=== PATIENT | male | born 1980 | race Hispanic/Latino ===

== ENCOUNTER 2017-06-08 06:31 | Day surgery (SDC) | payer MEDICAID ==
[2017-05-28 12:16] VITALS: BMI 25.1
[2017-06-08] MEDS ORDERED: Lactated Ringer's 1,000 ML IV ONE (07:15)
[2017-06-08] MEDS ORDERED: Propofol 10 mg/ml Inj (20 ML) ONE (07:23)
[2017-06-08] MEDS ORDERED: Succinylcholine 200 mg/10 ml Inj IV ONE (07:24)
[2017-06-08] MEDS ORDERED: Phenylephrine 10 mg/ml Inj ONE (07:24)
[2017-06-08] MEDS ORDERED: Lidocaine 1% Inj (20ml) ONE (07:25)
[2017-06-08] MEDS ORDERED: Lidocaine 2% w Epi 1:100,000 Inj IJ ONE (07:26)
[2017-06-08] MEDS ORDERED: Bacitracin Ointment 30 GM TUBE ONE (07:26)
--- NOTE | 2017-06-08 07:38 | CP.SDSHP ---
Same Day Surgery H & P - History Proposed Procedure: Right knee diagnostic arthroscopy Pre-Op Diagnosis: Right knee persistent pain and swelling s/p R TKA - Previous Medical/Surgical History Misc: Other (Hemophilia A, hepatitis C) Pain: 4.Moderate Pain Previous Surgical History: Right knee open synovectomy, right knee arthroscopy, left knee arthroscopy, right TKA, left TKA - Allergies Allergies: Allergies povidone-iodine [From Betadine] Allergy (Verified 05/28/17 11:23) RASH soap [From Betadine] Allergy (Verified 05/28/17 11:23) RASH - Current Medications Current Medications: Factor 8, celebrex, folic acid - Physical Exam General Appearance: No acute distress Vital Signs: T: 97.5, p:83, rr: 18, BP: 126/81, o2 sat: 96 Mental Status: Alert & Oriented x3 Neuro: WNL Heart: WNL Lungs: WNL GI: WNL - {Optional Preform as Required} Abdomen: WNL Integument: WNL Ortho: Other (Right knee: moderate swelling, old midline, lateral and medial surgical scars well healed, mild general tenderness, ROM 0-70, sensation intact SP/DP/TN, motor intact EHL/FHL/TA/Gastroc/Q/HS, pedal pulses intact, compartments soft and NT) ENT: WNL - Impression Impression: Patient is a 36 y/o male who presents with c/o right knee pain and swelling which has affected his activities of daily living. He has failed conservative management and has opted for surgical management. After discussing the risks and benefits of the procedure with the patient, he agrees to proceed. Pt. Evaluated Today:Candidate for Anesthesia & Procedure: Yes - Date & Time Date: 06/08/17 Time: 07:30 Short Stay Discharge - Short Stay Discharge Admitting Diagnosis/Reason for Visit: M17.11,M25.561 Referrals: Petros Malcolm III, MD [Primary Care Provider] -
[2017-06-08] MEDS ORDERED: Rocuronium 10 mg/ml (5 ml) ONE (08:23)
[2017-06-08] MEDS ORDERED: methylPREDNISolone Depo 80 mg/ml Inj ONE (08:34)
[2017-06-08] MEDS ORDERED: MethylPREDNISolone Depo 40 mg/ml Inj ONE (08:34)
[2017-06-08] MEDS ORDERED: Morphine 1 mg/ml preservative-free Inj(Duramorph) ONE (08:35)
[2017-06-08] MEDS ORDERED: Bupivacaine 0.5% Inj(30mL) ONE (08:35)
[2017-06-08] MEDS: EPINEPHrine 1 mg/ml (1:1000) Inj ONE ×2 (08:45→09:38)
[2017-06-08] MEDS ORDERED: Neostigmine 1:1000 (1 mg/ml) Inj ONE (08:48)
[2017-06-08] MEDS ORDERED: Bupivacaine 0.5% 50 ML IJ ONE (09:29)
[2017-06-08] MEDS ORDERED: Naloxone 0.4 mg/ml Inj (Adult) ONE (09:30)
--- NOTE | 2017-06-08 09:43 | PCM.SURG1 ---
Surgeon's Initial Post Op Note - Surgeon's Notes Surgeon: Gold Cabinetmaker Maintenance: GAYLA Burnham/ 2nd assist Tai Ramirez PA-C Type of Anesthesia: General Endo, Block Regional Anesthesia Administered By: Dr Madeline Balbuena Pre-Operative Diagnosis: recurrent effusion R Knee (s/p TKR) /arthrofibrosis Operative Findings: as above Post-Operative Diagnosis: synovitis R Knee. arthrofibrosis. lateral patella retinacular contracture Operation Performed: surgical arthroscopy lateral patella retinacular release. surg arthroscopy partial synovectomy ( tricompartmental)'. evaluiation/ manipuilation R knee under anaesthesia. intraaticular injection Specimen/Specimens Removed: synovium/lateral retinaculum Estimated Blood Loss: EBL {In ML}: 5 Blood Products Given: N/A Drains Used: No Drains Post-Op Condition: Good Date of Surgery/Procedure: 06/08/17 Time of Surgery/Procedure: 08:45 (time in room 7:45)
[2017-06-08] MEDS ORDERED: Dexamethasone 4 mg/1 ml IVP PRN (09:48)
[2017-06-08] MEDS: HYDROmorphone 0.5 mg/0.5 ml ISec IVP PRN ×4 (10:04→11:35)
--- NOTE | 2017-06-08 11:38 | RAD ---
PROCEDURE: Intraoperative Fluoroscopy. HISTORY: RIGHT KNEE FINDINGS: Fluoroscopic assistance was provided 7.5 seconds fluoroscopy time utilized during this procedure. Radiation dose = 0.38 mGy. Please refer to the operative report from [facility].
--- NOTE | 2017-06-08 11:39 | RAD ---
PROCEDURE: Right Knee Radiographs. HISTORY: Status post right knee arthroscopic lysis of adhesions COMPARISON: Correlation made with concurrent intraoperative fluoroscopy images FINDINGS: BONES: Re- demonstrated is in situ total knee arthroplasty. Hardware appears intact. Satisfactory alignment There are bubbles of subcutaneous air with soft tissue swelling and suspected small effusion. JOINTS: As above JOINT EFFUSION: As above. OTHER FINDINGS: None. IMPRESSION: Total knee arthroplasty. Hardware appears intact with satisfactory alignment. Postoperative subcutaneous swelling and bubbles of air.
[2017-06-08 13:24] VITALS: RESP 18; O2SAT 95
[2017-06-08 16:21] VITALS: BP 148/81; PULSE 99; TEMP 97.6
--- NOTE | 2017-06-10 16:30 | OP ---
PROCEDURE DATE: 06/08/2017 PREOPERATIVE DIAGNOSIS: Arthrofibrosis of the right knee status post total knee replacement. POSTOPERATIVE DIAGNOSES: Arthrofibrosis of the right knee status post total knee replacement with lateral patellar contracture and marked synovitis. SURGEON: Petros Malcolm MD INGREDIENT SCALER HELPER: Orquidea Montoya, certified registered nursing senior administrative assistant. TYPE OF ANESTHESIA: General endotracheal anesthesia. COMPLICATIONS: None. DRAINS: None. OPERATIVE PROCEDURE 1. Surgical arthroscopy, lateral patellar retinacular release. 2. Surgical arthroscopy, right knee and tricompartmental synovectomy. 3. Manipulation of the right knee under anesthesia. 4. Intra-articular injection. OPERATIVE INDICATIONS: Bay Egan is a 36-year-old hemophiliac, who presents with persistent pain in the area of the right knee and restricted range of motion. The patient is status post successful right total knee replacement and arthroplasty, has developed a bit of arthrofibrosis and some pain. The patient has had recurrent effusions without extraordinary bleeds. Pros, cons, risks and benefits of surgical arthroscopy discussed, the possibility of mechanical failure, infection, recurrent bleeds, infection, thromboembolic disease, nerve injury, secondary or tertiary surgery was discussed. The patient can no longer stand the discomfort and wished the surgery to be accomplished. He is aggressively indicating the surgery. OPERATIVE PROCEDURE: After having obtained informed consent, after having identified side, site and procedure and a critical pause/time-out, after the satisfactory induction of the anesthetic, the patient identified as Bay Egan, right lower extremity was prepped and free draped in usual fashion for lower extremity surgery. No tourniquet was employed. The lateral post was employed. The joint is insufflated with 10 mL of 1% lidocaine without epinephrine from an anterolateral portal using number 11 blade followed by spreading, followed by introduction of blunt trocar, the arthroscope was introduced. It should be noted that this anterolateral portal is in the area of the previous opened meniscectomy that this patient had many years before. The arthroscope was introduced, a second portal was accomplished anteromedially. Triangulation was accomplished using number 18 gauge spinal needle followed by number 11 blade, followed by spreading with the arthroscope anterolaterally with surgeon exerting a gentle valgus stress, there was found to be a massive amount of synovitis and scar tissue. There was no evidence of recent bleed, however. With the arthroscope anterolaterally, a careful partial tricompartmental synovectomy was accomplished both to improve visualization and to ablate irritative tissue. With the arthroscope anterolaterally, a careful partial tricompartmental synovectomy is completed. Bleeding points controlled with the arthroscopic wand. With the arthroscope now transferred anteromedially, further debridement of the posterior aspect of the fat pad and thorough synovectomy was accomplished. There was found to be some adhesion of the patella. With the knee in full extension, with the engineering assistant holding the femur with the downward directed force, the knee is hyperextended, the arthroscope was placed in the patellofemoral joint and thorough debridement of the patellofemoral joint was accomplished using arthroscopic shaver. There was found to be evidence of the lateral patellar retinacular contracture. With the arthroscope anterolaterally and with the knee in full extension, the lateral patellar retinaculum was identified and it was carefully divided from the area of the joint line to the suprapatellar pouch. Great care was taken to avoid injury to the peroneal nerve, the arthroscope was now placed anteromedially and the debridement was accomplished as well. With the arthroscope anteromedially, partial tricompartmental synovectomy is completed and using the arthroscopic shaver, the inner aspect of the lateral patellar retinaculum was carefully debrided. Lateral patellar retinaculum having been accomplished, the partial synovectomy having been accomplished, the knee is carefully manipulated and more flexion and extension is achieved to approximately 105 degrees to -2 degrees. Wound was thoroughly irrigated and portals were closed with interrupted Vicryl and nylon. Intra-articular injection was offered. The light Corwin Sandhu compression dressing was applied. Petros Malcolm MD
== END 2017-06-08 14:40 | disposition home or self-care (01) ==
LOC: H.OPSURG 06:31
PROVIDERS: ATTEND Orthopaedic Surgery
DX: M24.661 Ankylosis, right knee (principal); M65.861 Other synovitis and tenosynovitis, right lower leg; M24.561 Contracture, right knee; D66 Hereditary factor VIII deficiency; B19.20 Unspecified viral hepatitis C without hepatic coma; Z96.651 Presence of right artificial knee joint
CPT/HCPCS: 29873; 29876; 73560; 88305; 97161; J0171; J0330; J0690; J1030; J1170; J2001; J2175; J2310; J2370; J2704; J2710; J3010; J7030; J7120